=== PATIENT | female | born 1985 | race Caucasian/White ===

== ENCOUNTER 2019-08-10 14:37 | Emergency (ER) | payer OTHER ==
[~2019-08-10] VITALS: Ht 167.6 cm; Wt 104.3 kg
[2019-08-10] MEDS ORDERED: B-12500 MCG PO (14:51)
[2019-08-10] MEDS ORDERED: MULTI VITAMIN1 EACH PO (14:51)
[2019-08-10] MEDS ORDERED: BIOTIN1 MG PO (14:52)
[2019-08-10] MEDS ORDERED: ZYRTEC10 MG PO (14:53)
[2019-08-10] MEDS ORDERED: SERTRALINE HCL100 MG PO (14:53)
[2019-08-10] MEDS ORDERED: SEROPHENE50 MG PO (14:58)
[2019-08-10] MEDS ORDERED: CHLORDIAZEPOXID25 MG PO (15:07)
== END 2019-08-10 15:55 | disposition home or self-care (01) ==
LOC: ED 14:37
DX: F10.10 Alcohol abuse, uncomplicated (principal); F17.200 Nicotine dependence, unspecified, uncomplicated
CPT/HCPCS: 96374; 96375; 99284-25; J2060; J2405; J7030